=== PATIENT | female | born 1965 | race Caucasian/White ===

== ENCOUNTER → 2017-12-04 | Outpatient (CLI) | payer BC ==
--- NOTE | 2017-12-05 12:52 | MM ---
Reason for exam: screening (asymptomatic). Last mammogram was performed 3 years and 2 months ago. History: Patient is postmenopausal. Family history of breast cancer in maternal aunt at age 50. Physical Findings: A clinical breast exam by your physician is recommended on an annual basis and results should be correlated with mammographic findings. MG 3D Screening Mammo W/Cad Bilateral CC and MLO view(s) were taken. Prior study comparison: September 24, 2014, bilateral MG diagnostic mammo w CAD CRISTIN. The breast tissue is extremely dense which could obscure a lesion on mammography. No suspicious abnormality. No significant changes when compared with prior studies. ASSESSMENT: Negative, BI-RAD 1 RECOMMENDATION: Routine screening mammogram of both breasts in 1 year.
== END ==
LOC: RADMAMWWP 07:31
PROVIDERS: ATTEND Family Medicine
DX: Z12.31 Encounter for screening mammogram for malignant neoplasm of breast (principal)
CPT/HCPCS: 77063; 77067

== ENCOUNTER → 2018-02-05 | Day surgery (SDC) | payer BC ==
[2018-02-04 08:30] VITALS: BMI 20.6
[~2018-02-05] MED LIST: DEXAMETHASONE SOD PHOSPHATE 10 MG/ML 1 ML VIAL IV ONE; HYDROmorphone 0.5 MG/0.5 ML SYRINGE IVP PRN; LACTATED RINGERS 1,000 ML IV SCH; LIDOCAINE 1% 20 ML VIAL (10MG/ML) FOR IV START INTRADERMA PRN; LIDOCAINE 1% INJ 10MG/ML (20 ML MDV) ONE; ONDANSETRON 4 MG/2 ML VIAL IVP ONE; PROPOFOL 10 MG/ML 20 ML VIAL IV ONE; SCOPOLAMINE 1.5MG/72HR PATCH TRANSDERM ONE
--- NOTE | 2018-02-05 10:09 | P.GSHP ---
History of Present Illness H&P Date: 02/05/18 CHIEF COMPLAINT: Colon screen HISTORY OF PRESENT ILLNESS: The patient is a 52-year-old female who presents for colon screen. Lower endoscopy was offered for further evaluation and management. PAST MEDICAL HISTORY: Please see list. PAST SURGICAL HISTORY: Please see list. MEDICATIONS: Please see list. ALLERGIES: Please see list. SOCIAL HISTORY: No illicit drug use FAMILY HISTORY: No reports of Crohn disease or ulcerative colitis. REVIEW OF ORGAN SYSTEMS: CONSTITUTIONAL: No reports of fevers or chills. PHYSICAL EXAM: VITAL SIGNS: Stable GENERAL: Well-developed pleasant in no acute distress. HEENT: No scleral icterus. Extraocular movements grossly intact. Moist buccal mucosa. NECK: Supple without lymphadenopathy. CHEST: Unlabored respirations. Equal bilateral excursions. CARDIOVASCULAR: Regular rate and rhythm. Distal 2+ pulses. ABDOMEN: Soft, nontender, nondistended. MUSCULOSKELETAL: No clubbing, cyanosis, or edema. ASSESSMENT: 1. Colon screen. PLAN: 1. Recommend proceeding with a lower endoscopy Past Medical History Past Medical History: No Reported History Additional Past Medical History / Comment(s): SCREENING History of Any Multi-Drug Resistant Organisms: None Reported Past Surgical History: Hysterectomy, Tonsillectomy Past Anesthesia/Blood Transfusion Reactions: No Reported Reaction Smoking Status: Never smoker - Past Family History Daughter(s) Family Medical History: Cancer Additional Family Medical History / Comment(s): WILM'S TUMOR Brother(s) Family Medical History: Cancer Additional Family Medical History / Comment(s): #1 PROSTATE. #2 COLON Father Family Medical History: Cancer Additional Family Medical History / Comment(s): PROSTATE Medications and Allergies Home Medications Medication Instructions Recorded Confirmed Type No Known Home Medications 02/04/18 02/04/18 History Allergies Allergy/AdvReac Type Severity Reaction Status Date / Time No Known Allergies Allergy Verified 02/04/18 08:26
[2018-02-05 11:08] VITALS: TEMP 96.8
[2018-02-05 11:46] VITALS: RESP 18
--- NOTE | 2018-02-05 11:52 | P.PCN ---
Date of Procedure: 02/05/18 Description of Procedure: PREOPERATIVE DIAGNOSIS: Colonoscopy screening, initial Family history of colon cancer in brother at the age of 59 POSTOPERATIVE DIAGNOSIS: Colonoscopy screening, initial Family history of colon cancer in brother at the age of 59 Diverticulosis, scattered OPERATION: Colonoscopy to the hepatic flexure SURGEON: Eunice Kelly MD. ANESTHESIA: MAC. INDICATIONS: The patient is a 52-year-old female who presents for her first colonoscopy screening. She has a family history of colon cancer in her brother at the age of 59. Benefits and risks were described and informed consent was obtained. DESCRIPTION OF PROCEDURE: The patient had undergone Gatorade, MiraLAX and Dulcolax prep. She had been brought into the operating room and laid in the left lateral decubitus position. After adequate intravenous sedation, the rectum was examined with 2% lidocaine jelly. No external hemorrhoids were encountered. The rectal tone was within normal limits. No lesions were palpated in the rectal vault. She had a highly redundant sigmoid colon and transverse colon. An Olympus colonoscope was advanced. Despite abdominal wall pressure including placing her in supine position, the scope could not safely pass the hepatic flexure. Colonoscopy was performed to the hepatic flexure. Rest of colon was unremarkable for polyps. The prep was excellent with clear visualization of the mucosal folds. Scattered diverticulosis was encountered. No colonic polyps were found in the rest of the colon. No evidence of focal colitis was found. Retroflexion of the scope demonstrated no internal hemorrhoids. The colon was desufflated. The patient had tolerated the procedure well. Withdrawal time was over 6 minutes. FINDINGS: No internal hemorrhoids No external prolapsed hemorrhoids No arteriovenous malformations Colonoscopy only performed to the hepatic flexure despite abdominal wall pressure including placing her in supine position Very redundant sigmoid and transverse colon Rest of colon was unremarkable for polyps No focal colitis. RECOMMENDATIONS: 1. Recommend completion barium enema with high risk family history of colon cancer. 2. Lower endoscopy in 5 years, 2022, for family history of colon cancer. Plan - Discharge Summary New Discharge Prescriptions: No Action No Known Home Medications Discharge Medication List No Known Home Medications 02/04/18 [History] Follow up Appointment(s)/Referral(s): Eunice Kelly MD [STAFF PHYSICIAN] - 03/04/18 9:40 am Ambulatory/Diagnostic Orders: Miscellaneous Radiology Order [RAD.AMB] Time Frame: 3 Weeks, Facility: [facility], Location: [facility] Patient Instructions/Handouts: *Surgery [facility] - (Anesthesia) Endoscopy Discharge Instructions, Barium Enema (ED), Barium Enema (DC), Colonoscopy (DC) Discharge Disposition: HOME SELF-CARE
[2018-02-05 12:22] VITALS: BP 110/65; PULSE 68
--- NOTE | 2018-02-05 15:20 | XR ---
EXAMINATION TYPE: XR KUB DATE OF EXAM: 02/05/2018 3:11 PM CLINICAL HISTORY: Incomplete colonoscopy. TECHNIQUE: Single supine KUB image of the abdomen is obtained. COMPARISON: None. FINDINGS: Gas prominent small or large bowel loops are seen throughout the abdomen and pelvis. There is no visceromegaly or abnormal calcification appreciated. The visualized osseous structures are inta ct. IMPRESSION: Overall nonspecific bowel gas pattern. Findings correlate with recent attempted incomplete colonoscop y.
--- NOTE | 2018-02-06 09:26 | FL ---
EXAMINATION TYPE: FL barium enema DATE OF EXAM: 02/06/2018 COMPARISON: Abdominal x-ray from yesterday. HISTORY: Failed routine colonoscopy yesterday. TECHNIQUE: A double contrast barium enema study is performed. A total of 2 minutes 24 seconds of flu oroscopic time was utilized during procedure. 17 spot and overhead images are obtained. FINDINGS: Fat [employer] Worker view of the abdomen shows overall marked improvement in gaseous dilated small and la rge bowel loops from study one day earlier. Enema study is performed. There is successful filling to the cecum. Patient has redundant colon makin g evaluation for polyps suboptimal. No obstructing or constricting lesion is identified. No obvious p olyps are seen. Occasional rare diverticula is present, I identify 2-5 scattered diverticula during p erformance of study. No inflammatory change is noted. Appendix was filled and appeared normal. The t erminal ileum was minimally refluxed. IMPRESSION: Redundant colon without obstructing or constricting lesion.
== END | disposition home or self-care (01) ==
LOC: ORWHC2ENDO 10:31
PROVIDERS: ATTEND Surgery Plastic and Reconstructive Surgery
DX: Z12.11 Encounter for screening for malignant neoplasm of colon (principal); K57.30 Diverticulosis of large intestine without perforation or abscess without bleeding; Q43.8 Other specified congenital malformations of intestine; Z80.0 Family history of malignant neoplasm of digestive organs
CPT/HCPCS: 74018; 45378; J2001; J2704; 74270